=== PATIENT | female | born 1955 | race Caucasian/White ===

== ENCOUNTER 2021-02-18 05:55 | Inpatient (IN) | payer OTHER, SELFPAY ==
[~2021-02-18] VITALS: Ht 152.4 cm; Wt 48.5 kg
[2021-02-18] MEDS ORDERED: ALVIMOPAN 12 MG CAPSULE PO ONE (06:31)
[2021-02-18] MEDS ORDERED: BUPIVACAINE LIPOSOME/PF 266 MG/20 ML VIAL INFIL ONE (06:56)
[2021-02-18] MEDS ORDERED: cefOXitin 2 GM IVPB PREMIX 50 ML IV ONE (07:00)
[2021-02-18] MEDS ORDERED: MULT-1089 PO (07:56)
[2021-02-18] MEDS ORDERED: ACETAMINOPHEN I.V. 1000 MG 100 ML IV ONE (07:56)
[2021-02-18] MEDS ORDERED: MEPERIDINE HCL/PF 25 MG/ML DISP.SYRIN IVP PRN (08:15)
[2021-02-18] MEDS ORDERED: HYDROmorphone 1 MG/ML INJ. CARTRIDGE IVP PRN ×3 (08:15→09:30)
[2021-02-18] MEDS ORDERED: METOCLOPRAMIDE HCL 10 MG/2 ML VIAL IVP PRN (08:15)
[2021-02-18] MEDS ORDERED: MIDAZOLAM HCL 2 MG/2 ML VIAL (VERSED) IVP PRN (08:15)
[2021-02-18] MEDS ORDERED: LR 1,000 ML IV SCH (08:15)
[2021-02-18] MEDS ORDERED: HYDROcodone/ACETAMIN 5-325 MG TAB (NORCO/ VICODIN) PO PRN ×2 (09:30)
[2021-02-18] MEDS ORDERED: NALOXONE HCL 0.4 MG/ML AMP (NARCAN) IVP PRN ×3 (09:30)
[2021-02-18] MEDS ORDERED: ACETAMINOPHEN 325 MG TABLET PO PRN (09:30)
[2021-02-18] MEDS ORDERED: ONDANSETRON HCL 4 MG/2 ML VIAL IVP PRN (09:30)
[2021-02-18] MEDS: D5/0.45 NS 1,000 ML IV SCH ×2 (09:30→22:14)
[2021-02-18 10:13] LABS: HEMOGLOBIN 12.5 g/dL (12.0-16.0)
[2021-02-18 10:21] LABS: CALCIUM 8.6 mg/dL (8.4-11.0); CREATININE 1.27 mg/dL (0.55-1.30); POTASSIUM 4.2 mmol/L (3.5-5.1)
[2021-02-18] MEDS ORDERED: LABETALOL 100 MG/ 20ML VIAL ONE (10:28)
[2021-02-18] MEDS ORDERED: LABETALOL 100 MG/ 20ML VIAL IVP PRN (10:30)
[2021-02-18 11:16] VITALS: BP_SYST 154
[2021-02-18 11:27] VITALS: BP_SYST 154
[2021-02-18 14:30] VITALS: BP_SYST 149
[2021-02-18 16:41] VITALS: BP_SYST 144
[2021-02-18 17:15] VITALS: BP_SYST 144
[2021-02-18 20:00] VITALS: BP_SYST 146
[2021-02-18] MEDS: FAMOTIDINE PF 20 MG/2 ML VIAL IVP SCH (22:13)
[2021-02-18] MEDS: ALVIMOPAN 12 MG CAPSULE PO SCH (22:13)
[2021-02-18] MEDS: cefOXitin SODIUM 2 GM in D5W 100 ML IV SCH (22:14)
[2021-02-19 00:30] VITALS: BP_SYST 145
[2021-02-19] MEDS: D5/0.45 NS 1,000 ML IV SCH ×2 (05:30→15:30)
[2021-02-19 07:23] LABS: BASOPHILS % (AUTO) 0.2 % (0.0-2.0); EOSINOPHILS % (AUTO) 0.1 % (0.0-4.0); HEMATOCRIT 33.2 % (36-48); HEMOGLOBIN 11.4 g/dL (12.0-16.0); LYMPHOCYTES # (AUTO) 1.3 K/uL (1.0-5.5); LYMPHOCYTES % (AUTO) 15.8 % (20.5-51.5); MEAN CORPUSCULAR HEMOGLOBIN 27 pg (27-31); MEAN CORPUSCULAR HGB CONC 34 % (32-36); MEAN CORPUSCULAR VOLUME 80 fL (79.0-98.0); MONOCYTES # (AUTO) 0.7 K/uL (0.0-1.0); MONOCYTES % (AUTO) 8.5 % (1.7-9.3); NEUTROPHILS # (AUTO) 6.1 K/uL (1.8-7.7); NEUTROPHILS % (AUTO) 75.4 % (40.0-70.0); PLATELET COUNT (AUTO) 292 K/uL (130-430); RED BLOOD CELL COUNT(AUTO) 4.15 MIL/uL (4.2-6.2); RED CELL DISTRIBUTION WIDTH 13.4 % (9.0-15.0); WHITE BLOOD COUNT (AUTO) 8.1 K/uL (4.8-10.8)
[2021-02-19 07:46] LABS: ALBUMIN 3.2 g/dL (3.4-4.8); CALCIUM 8.3 mg/dL (8.4-11.0); CREATININE 0.72 mg/dL (0.55-1.30); POTASSIUM 4.2 mmol/L (3.5-5.1); TOTAL BILIRUBIN 0.6 mg/dL (0.0-1.0)
[2021-02-19] MEDS: ALVIMOPAN 12 MG CAPSULE PO SCH ×2 (10:01→21:38)
[2021-02-19] MEDS: cefOXitin SODIUM 2 GM in D5W 100 ML IV SCH (10:02)
[2021-02-19] MEDS: FAMOTIDINE PF 20 MG/2 ML VIAL IVP SCH ×2 (10:02→21:39)
[2021-02-19] MEDS: ENOXAPARIN SODIUM 30 MG/0.3 ML SYRINGE SUBCUT SCH (10:06)
[2021-02-19] MEDS: METOCLOPRAMIDE HCL 10 MG/2 ML VIAL IVP SCH ×2 (12:00→17:49)
[2021-02-19 20:00] VITALS: BP_SYST 147
[2021-02-20 00:30] VITALS: BP_SYST 154
[2021-02-20] MEDS: D5/0.45 NS 1,000 ML IV SCH (00:44)
[2021-02-20] MEDS: METOCLOPRAMIDE HCL 10 MG/2 ML VIAL IVP SCH ×3 (00:44→12:11)
[2021-02-20 08:00] VITALS: BP_SYST 149
[2021-02-20] MEDS: FAMOTIDINE PF 20 MG/2 ML VIAL IVP SCH (09:18)
[2021-02-20] MEDS: ENOXAPARIN SODIUM 30 MG/0.3 ML SYRINGE SUBCUT SCH (09:18)
[2021-02-20] MEDS: ALVIMOPAN 12 MG CAPSULE PO SCH (09:51)
[2021-02-20 12:00] VITALS: BP_SYST 147
== END 2021-02-20 14:00 | disposition home or self-care (01) | DRG 331 ==
LOC: SMU 05:55
PROVIDERS: ADMIT Colon & Rectal Surgery; ATTEND Colon & Rectal Surgery
PROC: 0DTF0ZZ Resection of Right Large Intestine, Open Approach (ICD-10-PCS; principal; 2021-02-18 07:30)
DX: K63.5 Polyp of colon (principal); Z20.822 Contact with and (suspected) exposure to COVID-19
CPT/HCPCS: 36415; 80048; 80053; 85018; 85025; 86886; 86900; 86901; 87081; 88307; 94760; 97116-GP; C9290; J0131; J0694; J1650; J2765; J3490; J7060; U0003